=== PATIENT | male | born 1950 | race Caucasian/White ===

== ENCOUNTER 2019-05-15 09:42 | Inpatient (IN) | payer BC, MEDICARE ==
[~2019-05-15] VITALS: Ht 188 cm; Wt 109.0 kg
--- NOTE | 2019-05-15 09:49 | NUR ---
Code Neuro called @689 Neuro called @798
--- NOTE | 2019-05-15 09:55 | NUR ---
0945 PT TO ROOM, CODE NEURO CALLED. DR ROOT AT BEDSIDE.
--- NOTE | 2019-05-15 09:57 | NUR ---
PT TO CT, PT ABLE TO MOVE SELF OVER TO CT TABLE AND BACK TO [facility] AFTER COMPLETION OF SCAN.
--- NOTE | 2019-05-15 10:05 | NUR ---
DR THORNTON IN CT DEPT, REVIEWED CT SCAN. STATES, HAS DISCUSSED WITH PTS PROS AND CONS, TPA TO BE ADMINISTERED AFTER RETURN TO ED.
[2019-05-15 10:10] LABS: BASOPHILS # (AUTO) 0.03 x10^3/uL (0-0.1); BASOPHILS % (AUTO) 0 % (0-1); EOSINOPHILS # (AUTO) 0.15 x10^3/uL (0-0.4); EOSINOPHILS % (AUTO) 2 % (1-7); LYMPHOCYTES # (AUTO) 1.71 x10^3/uL (1-3.4); LYMPHOCYTES % (AUTO) 22 % (22-44); MD NO; MEAN CORPUSCULAR HEMOGLOBIN 32.3 pg (27.5-34.5); MEAN CORPUSCULAR HGB CONC 34.1 g/dL (33.2-36.2); MEAN CORPUSCULAR VOLUME 94.7 fL (81-97); MEAN PLATELET VOLUME 7.3 fL (7.4-10.4); MONOCYTES # (AUTO) 0.57 x10^3/uL (0.2-0.8); MONOCYTES % (AUTO) 8 % (2-9); NEUTROPHILS # (AUTO) 5.18 x10^3/uL (1.8-6.8); NEUTROPHILS % (AUTO) 68 % (42-75); PLATELET COUNT 269 x10^3/uL (130-400); RED BLOOD COUNT 5.13 x10^6/uL (4.38-5.82); RED CELL DISTRIBUTION WIDTH 12.9 % (9.4-14.8)
--- NOTE | 2019-05-15 10:10 | NUR ---
PT RETURN TO DEPT. DR ROOT AWARE OF PT TO RECEIVE TPA.
--- NOTE | 2019-05-15 10:12 | NUR ---
DR THORNTON AT BEDSIDE, DISCUSSED TPA WITH PT AND PTS . VERBAL CONSENT BY PT GIVEN. PTS SIGNED CONSENT. .
[2019-05-15 10:22] LABS: INTERNATIONAL NORMALIZED RATIO 1.02 (0.93-1.1); PROTHROMBIN TIME 10.7 Seconds (9.6-11.5)
--- NOTE | 2019-05-15 10:32 | NUR ---
BOLUS OF 9MG GIVEN VERIFIED DOSE WITH TOBIAS Avery RN
--- NOTE | 2019-05-15 10:33 | NUR ---
INFUSION OF 81MG TPA STARTED. WASTE OF 10MG Addendum: 05/15/19 at 1057 by KAYLEE 10MG TPA WASTED, VERIFIED WASTE AND INFUSION AMT WITH TOBIAS Avery RN.
[2019-05-15 10:56] LABS: ALANINE AMINOTRANSFERASE 23 U/L (12-78); BILIRUBIN, DIRECT 0.1 mg/dL (0.1-0.2)
--- NOTE | 2019-05-15 10:57 | NUR ---
TPA INFUSING ORDERED, NO S/S OF BLEEDING NOTED. PT SPEAKING. PER , SPEECH NOT IMPROVED. PT SR PER MONITOR, AUTO BP IN PLACE 135/81. PT FOLLOWS COMMANDS, LIFT ARMS, SQUEEZE MY HANDS, SENSATION INTACT. ABLE TO LIFT AYLA LEGS, SENSATION INTACT. TONGUE MIDLINE. SMILE WITHOUT DROOP. PT WITH GARBLED SPEECH. WHEN ASKED YEAR, STATES "[employer] FIRS...OF" REPEATS THAT TO WHAT IS THE DATE, AND WHERE ARE WE AT. WHEN TOLD THE DATE, YEAR AND LOCATION. PT STATES "YES". PT AND PTS FAMILY UPDATED ON POC. NEURO CHECKS, V/S, ADMISSION, UNDERSTANDING VERBALIZED.
[2019-05-15 11:00] LABS: ALKALINE PHOSPHATASE 68 U/L (45-117); BILIRUBIN,INDIRECT 0.7 mg/dL (0.0-2.0); BILIRUBIN,TOTAL 0.8 mg/dL (0.2-1.0); TOTAL PROTEIN 7.9 g/dL (6.4-8.2); TROPONIN I < 0.015 ng/mL (0.000-0.045)
[2019-05-15] MEDS ORDERED: ALTEPLASE IV ONE (11:00)
[2019-05-15] MEDS ORDERED: ALTEPLASE 10 MG in SYRINGE 1 EA IVPush ONE (11:00)
[2019-05-15] MEDS ORDERED: ASPI-496 PO (11:27)
[2019-05-15] MEDS ORDERED: ALTEPLASE 81 MG in VIAL 1 EACH IV ONE (11:30)
--- NOTE | 2019-05-15 11:39 | NUR ---
TPA COMPLETED INFUSING. NO BLEEDING NOTED.
--- NOTE | 2019-05-15 11:39 | NUR ---
HOSPITALIST AT BEDSIDE TO TRACIE PT
--- NOTE | 2019-05-15 11:45 | NUR ---
ATTEMPT TO CALL REPORT, RN NOT AVAILABLE.
[2019-05-15] MEDS ORDERED: ACETAMINOPHEN 325 MG TABLET PO PRN (12:00)
--- NOTE | 2019-05-15 12:01 | NUR ---
REPORT CALLED TO HALLIE LEY. POC DISCUSSED.
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
[2019-05-15] MEDS ORDERED: ALTEPLASE 1 MG/ML, 100ML ONE (12:20)
[2019-05-15 12:30] VITALS: BP 149/81
[2019-05-15 18:40] LABS: MICROSCOPIC NOT IND
[2019-05-15] MEDS: ATORVASTATIN 80 MG TABLET PO SCH (20:17)
[2019-05-16 04:44] LABS: BASOPHILS # (AUTO) 0.03 x10^3/uL (0-0.1); BASOPHILS % (AUTO) 0 % (0-1); EOSINOPHILS # (AUTO) 0.22 x10^3/uL (0-0.4); EOSINOPHILS % (AUTO) 3 % (1-7); LYMPHOCYTES # (AUTO) 2.18 x10^3/uL (1-3.4); LYMPHOCYTES % (AUTO) 25 % (22-44); MD NO; MEAN CORPUSCULAR HEMOGLOBIN 31.8 pg (27.5-34.5); MEAN CORPUSCULAR HGB CONC 33.6 g/dL (33.2-36.2); MEAN CORPUSCULAR VOLUME 94.8 fL (81-97); MEAN PLATELET VOLUME 7.6 fL (7.4-10.4); MONOCYTES % (AUTO) 12 % (2-9); NEUTROPHILS % (AUTO) 60 % (42-75); PLATELET COUNT 247 x10^3/uL (130-400); RED BLOOD COUNT 4.78 x10^6/uL (4.38-5.82); RED CELL DISTRIBUTION WIDTH 12.9 % (9.4-14.8)
[2019-05-16 04:52] LABS: ANION GAP 5 mmol/L (5-15); CALCIUM 8.7 mg/dL (8.5-10.1); CHLORIDE 108 mmol/L (98-107); CREATININE 0.83 mg/dL (0.7-1.3)
[2019-05-16 05:07] VITALS: BP 110/53
[2019-05-16] MEDS ORDERED: GADOTERATE 10 MMOL/20 ML SYR ONE (11:04)
--- NOTE | 2019-05-16 11:16 | NUR ---
REC: Reg/thins; orange sheet not indicated Addendum: 05/16/19 at 1116 by Nolvia DESAI Amended: Links added.
[2019-05-16 11:56] LABS: CHOL/HDL RATIO 5.9; LDL/HDL RATIO 4.1 (0.5-3.0)
[2019-05-16] MEDS ORDERED: CLOPIDOGREL 300 MG TABLET PO ONE (13:30)
[2019-05-16] MEDS: ASPIRIN 325 MG TABLET EC PO SCH (15:34)
[2019-05-16 16:31] VITALS: BP 133/83
[2019-05-16 19:46] VITALS: BP 129/87
[2019-05-16] MEDS: ATORVASTATIN 80 MG TABLET PO SCH (20:09)
[2019-05-17 01:57] VITALS: BP 114/78
[2019-05-17] MEDS: ASPIRIN 325 MG TABLET EC PO SCH (05:06)
[2019-05-17 09:54] VITALS: BP 109/74
[2019-05-17] MEDS: CLOPIDOGREL 75 MG TABLET PO SCH (10:26)
[2019-05-17 15:35] VITALS: BP 127/76
[2019-05-17 19:23] VITALS: BP 131/78
[2019-05-17] MEDS: ATORVASTATIN 80 MG TABLET PO SCH (20:44)
[2019-05-18 01:56] VITALS: BP 105/66
[2019-05-18] MEDS: ASPIRIN 325 MG TABLET EC PO SCH (06:17)
[2019-05-18 08:00] VITALS: BP 124/72
[2019-05-18] MEDS ORDERED: POLYETHYLENE GLYCOL 17 GM PACKET NG ONE (08:00)
[2019-05-18] MEDS ORDERED: DOCUSATE 50 MG/5 ML, 10ML UDC PO PRN (08:00)
[2019-05-18] MEDS: CLOPIDOGREL 75 MG TABLET PO SCH (09:38)
[2019-05-18] MEDS ORDERED: ASPI-650 PO (14:00)
[2019-05-18] MEDS ORDERED: ATOR-2 PO (14:00)
[2019-05-18] MEDS ORDERED: CLOP75TA PO (14:00)
[2019-05-18 15:39] VITALS: BP 117/74
[2019-05-18 18:57] VITALS: BP 130/84
[2019-05-18] MEDS: ATORVASTATIN 80 MG TABLET PO SCH (20:56)
[2019-05-19 00:36] VITALS: BP 123/80
[2019-05-19] MEDS: ASPIRIN 325 MG TABLET EC PO SCH (06:27)
[2019-05-19 07:01] VITALS: BP 113/76
[2019-05-19] MEDS: CLOPIDOGREL 75 MG TABLET PO SCH (08:42)
[2019-05-19 13:30] VITALS: BP 132/82
[2019-05-19 20:06] VITALS: BP 121/81
[2019-05-19] MEDS: ATORVASTATIN 80 MG TABLET PO SCH (21:36)
[2019-05-19 23:29] VITALS: BP 111/80
[2019-05-20] MEDS: ASPIRIN 325 MG TABLET EC PO SCH (05:26)
[2019-05-20 07:31] VITALS: BP 116/80
[2019-05-20] MEDS: CLOPIDOGREL 75 MG TABLET PO SCH (08:14)
[2019-05-20 13:06] VITALS: BP 136/93
== END 2019-05-20 14:50 | DRG 63 ==
LOC: ED 09:48 → EDIP 10:29 → CCU 12:16 → 4WST 05-16 04:17
PROVIDERS: ADMIT Hospitalist; ATTEND Family Medicine
DX: I63.512 Cerebral infarction due to unspecified occlusion or stenosis of left middle cerebral artery (principal); R29.702 NIHSS score 2; I65.22 Occlusion and stenosis of left carotid artery; R47.01 Aphasia; Z80.0 Family history of malignant neoplasm of digestive organs; J32.0 Chronic maxillary sinusitis; R73.9 Hyperglycemia, unspecified
CPT/HCPCS: 36415; 70450; 70496; 70498; 70553; 71045; 80047; 80048; 80061; 80076; 81003; 82962; 83036; 83735; 83880; 84100; 84443; 84484; 85025; 85610; 85730; 87081; 93005; 93306; 99291; G0378; J2997; 92523-GN; A9575